=== PATIENT | female | born 1995 | race Caucasian/White ===

== ENCOUNTER → 2023-10-05 11:33 | Outpatient (REF) | payer OTHER, SELFPAY ==
[2023-10-07 20:10] LABS: Quantiferon Mitogen minus NIL 9.98 IU/mL; Quantiferon NIL 0.02 IU/mL; Quantiferon Plus TB2 minus NIL -0.01 IU/mL (<=0.34); Quantiferon TB Gold Plus Negative (Negative)
== END ==
LOC: OHS 11:33
PROVIDERS: ATTENDING PHYSICIAN Nurse Practitioner Family
DX: Z23 Encounter for immunization (principal)
CPT/HCPCS: 86480

== ENCOUNTER → 2024-06-23 10:33 | Outpatient (REF) | payer BC, SELFPAY ==
[2024-06-24 12:53] LABS: HIV Combo Negative (Negative)
== END ==
LOC: CLAB 10:33
PROVIDERS: ATTENDING PHYSICIAN Student in an Organized Health Care Education/Training Program
DX: Z11.3 Encounter for screening for infections with a predominantly sexual mode of transmission (principal)
CPT/HCPCS: 36415; 87389; 87491; 87591

== ENCOUNTER → 2024-10-06 15:57 | Outpatient (REF) | payer BC, SELFPAY ==
[2024-10-07 18:59] LABS: HIV Combo Negative (Negative)
== END ==
LOC: REG 15:57
PROVIDERS: ATTENDING PHYSICIAN Student in an Organized Health Care Education/Training Program
DX: Z11.3 Encounter for screening for infections with a predominantly sexual mode of transmission (principal)
CPT/HCPCS: 36415; 87389